=== PATIENT | female | born 1965 | race Caucasian/White ===

== ENCOUNTER 2018-08-10 11:00 | Outpatient (REF) | payer MEDICAID, SELFPAY ==
[2018-08-10 21:02] LABS: HCT 44.2 % (36.0-46.0); HGB 14.9 g/dL (12.0-15.5)
[2018-08-10 21:29] LABS: Anion Gap 7.5 mmol/L (3-11); BUN 7 mg/dL (7-18); CO2 31.5 mmol/L (21.0-32.0); CREATININE 0.85 mg/dL (0.55-1.02); Calcium 9.2 mg/dL (8.5-10.1); Chloride 103 mmol/L (98-107); Cholesterol 229 mg/dL (50-200); Glucose 70 mg/dL (70-100); HDL Cholesterol 46 mg/dL (40-60); LDL CHOLESTEROL 163 mg/dL (<100); Sodium 142 mmol/L (136-145); Triglyceride 114 mg/dL (30-150)
== END 2018-08-10 11:20 ==
LOC: NCHCN 11:00
PROVIDERS: PCP Specialist/Technologist Athletic Trainer; Visit Provider Specialist/Technologist Athletic Trainer
DX: Z13.228 Encounter for screening for other metabolic disorders (principal); Z13.220 Encounter for screening for lipoid disorders; Z13.0 Encounter for screening for diseases of the blood and blood-forming organs and certain disorders involving the immune mechanism; Z00.00 Encounter for general adult medical examination without abnormal findings
CPT/HCPCS: 80048; 80061; 83721; 85014; 85018